=== PATIENT | female | born 1955 | race Caucasian/White ===

== ENCOUNTER → 2016-10-23 | Outpatient (REF) | payer OTHER ==
[~2016-10-23] MED LIST: ALBU83IN INH; AMLO25TA PO; COZA100T2 PO; DYAZ37.5 PO; LOSARTAN PO; PROT1TAB2 PO
== END ==
LOC: M SFHCADAM 09:57
PROVIDERS: ATTEND Family Medicine
DX: I10 Essential (primary) hypertension (principal)

== ENCOUNTER 2016-11-21 03:44 | Emergency (ER) | payer OTHER ==
[~2016-11-21] VITALS: Ht 167.6 cm; Wt 104.3 kg
[2016-11-21] MEDS ORDERED: ATOR1TAB18 PO (04:02)
[2016-11-21] MEDS ORDERED: ALDA25TA PO (04:02)
[2016-11-21] MEDS ORDERED: PRED20TA PO (04:58)
[2016-11-21] MEDS ORDERED: predniSONE 20 MG TAB PO ONE (05:00)
[2016-11-21 05:19] VITALS: BP 142/73
[2016-11-21] MEDS ORDERED: ALBUTEROL 90 MCG/ACT 8GM HFA INHALER INH ONE (05:30)
== END 2016-11-21 05:36 | disposition home or self-care (01) ==
LOC: M ED 05:12
DX: J20.9 Acute bronchitis, unspecified (principal); J45.909 Unspecified asthma, uncomplicated; Z79.899 Other long term (current) drug therapy; Z79.52 Long term (current) use of systemic steroids

== ENCOUNTER → 2017-04-15 | Outpatient (CLI) | payer OTHER ==
[~2017-04-15] MED LIST changes: +ALDA25TA PO; +ATOR80TA59 PO; +METHACHOLINE KIT (J7674) INH ONE; +PRED20TA PO
--- NOTE | 2017-04-15 11:26 | PFTRPT ---
Tech: Terrence DOTSON RRT Age: 61 Sex: Female Race: Height: 66.50 Inches Weight: 224.00 Lbs BSA: 2.11 Diagnosis: R05 METHACHOLINE CHALLENGE REPORT: ORDERING PROVIDER: DEWAYNE Aguilar DATE OF SERVICE: 04/15/17 INTERPRETATION: The study was of excellent technical quality. Under protocol, methacholine was administered. At a maximal dose of 25 mg (188.875 CDUs) of methacholine,a 21% decline in the FEV1 was noted. A PC20 of 17.21 does not meet criteria for a positive study. Flow rates did return to baseline post bronchodilator administration. IMPRESSION: Borderline methacholine challenge study in view of the above. Please correlate clinically. MTDD
== END ==
LOC: M CARPUL 10:31
PROVIDERS: ATTEND Nurse Practitioner Adult Health
DX: R05 Cough (principal)

== ENCOUNTER → 2017-09-11 | Outpatient (CLI) | payer OTHER ==
[~2017-09-11] MED LIST changes: -METHACHOLINE KIT (J7674) INH ONE
--- NOTE | 2017-09-11 10:54 | REPMRS ---
Patient History The patient states she had a clinical breast exam in February 2017.Patient is postmenopausal and is nulliparous. Family history of breast cancer in sister at age 40, unknown cancer in mother at age 64, and unknown cancer in paternal uncle at age 69. Took hormonal contraceptives for 5 years. Digital Mammo Screening Bilat: September 11, 2017 - Exam #: [id number] Bilateral CC and MLO view(s) were taken. Technologist: Tasha Spain Technologist Prior study comparison: 2013, digital bilateral screening mammo, performed at [facility]. July 17, 2012, bilateral bilat screen digital mammo, performed at [facility] ([facility]). November 02, 2003, bilateral screening mammogram, performed at [facility] ([facility]). FINDINGS: The breast tissue is heterogeneously dense. This may lower the sensitivity of mammography. There has been no change in the appearance of the mammogram from the prior studies. There is a moderate amount of residual fibroglandular tissue which is fairly symmetric. There is no interval development of dominant mass, areas of architectural distortion, or clustered microcalcification typical of malignancy. ASSESSMENT: BI-RADS/ACR category 1 mammogram. Negative. Recommendation Routine screening mammogram in 1 year (for women over age 40). This mammogram was interpreted with the aid of an FDA-approved computer-aided dectection system. Electronically Signed By: Shakeel Woodward MD 09/11/17 [id number]
--- NOTE | 2017-09-12 07:13 | REP ---
BILATERAL LOWER EXTREMITY DOPPLER ULTRASOUND: CLINICAL: Pain and edema. TECHNIQUE: Real-time jacobs scale and color Doppler evaluation using linear high frequency transducer along with reflux evaluation. FINDINGS: Ultrasound examination of the bilateral lower extremity deep venous structures from the common femoral vein to the popliteal vein demonstrates normal compressibility, flow, and wave patterns in response to respiration and augmentation. There is no evidence of deep venous thrombosis. Reflux evaluation demonstrates Dictation ends..... Incomplete
== END ==
LOC: M RAD 09:12
PROVIDERS: ATTEND Family Medicine
DX: Z12.31 Encounter for screening mammogram for malignant neoplasm of breast (principal); Z80.3 Family history of malignant neoplasm of breast; Z78.0 Asymptomatic menopausal state; R92.8 Other abnormal and inconclusive findings on diagnostic imaging of breast
CPT/HCPCS: 93970; G0202

== ENCOUNTER → 2019-09-27 | Outpatient (CLI) | payer OTHER ==
[~2019-09-27] MED LIST changes: -ALDA25TA PO; +SPIR1TAB34 PO
--- NOTE | 2019-09-27 20:54 | REP ---
Clinical: Cough . Comparison: 11/01/2014 . Technique: PA and lateral. Findings: The mediastinum and cardiac silhouette are normal. The lung justin are clear and without acute consolidation, effusion, or pneumothorax. The skeletal structures are intact and normal. Impression: 1. No acute cardiopulmonary process. Electronically Signed by Eliel Fernandez MD 09/27/2019 08:46 P
== END ==
LOC: M ADAMS 09:39
PROVIDERS: ATTEND Family Medicine
DX: R05 Cough (principal)

== ENCOUNTER → 2020-12-01 | Outpatient (CLI) | payer OTHER ==
[~2020-12-01] MED LIST changes: +ISOVUE-370 76% 100ML VIAL As Ordered ONE
--- NOTE | 2020-12-01 10:07 | REP ---
INDICATION: HEADACHE, UNSPECIFIED. New onset headache. COMPARISON: None. TECHNIQUE: CT contrast dose: 75 ml as Isovue 370 as administered intravenously. Pre and post contrast helical scanning is included. FINDINGS: Bone windows settings demonstrate intact bony calvarium. There is no evidence of skull fracture or bony destructive lesion. The right side of the sphenoid sinus is partially opacified with mucosal thickening. The visualized paranasal sinuses are otherwise clear. No intraorbital abnormality is seen. On soft tissue window settings, jacobs-white differentiation pattern is seen to be normal above and below the tentorium. Lateral, third, and fourth ventricles are normal in size and position. There is no evidence of intracranial hemorrhage. No mass, extra-axial fluid collection or infarction is seen. Contrast enhanced study shows enhancement of normal vessels. No abnormal contrast enhancement is appreciated. IMPRESSION: Mucosal thickening partially opacifying the right side of the sphenoid sinus. Otherwise normal brain CT without and with IV contrast. <Electronically signed by Joshua Galan > 12/01/20 [id number]
== END ==
LOC: M RAD 09:12
PROVIDERS: ATTEND Family Medicine
DX: R51.9 Headache, unspecified (principal); J34.89 Other specified disorders of nose and nasal sinuses
CPT/HCPCS: 70470; Q9967

== ENCOUNTER → 2020-12-18 | Outpatient (CLI) | payer OTHER ==
[~2020-12-18] MED LIST changes: -ISOVUE-370 76% 100ML VIAL As Ordered ONE
[2020-12-19 13:07] LABS: ANTINUCLEAR ANTIBODIES DIRECT Negative (Negative)
== END ==
LOC: M PLALAB 10:35
PROVIDERS: ATTEND Psychiatry & Neurology Neurology
DX: R51.9 Headache, unspecified (principal)

== ENCOUNTER → 2022-02-19 | Outpatient (CLI) | payer MEDICARE, OTHER | LOC: M WHC 09:56 | PROVIDERS: ATTEND Family Medicine | DX: Z12.31 Encounter for screening mammogram for malignant neoplasm of breast (principal); Z13.820 Encounter for screening for osteoporosis; M81.0 Age-related osteoporosis without current pathological fracture ==

== ENCOUNTER → 2022-05-10 | Outpatient (REF) | payer MEDICARE, OTHER ==
[~2022-05-10] MED LIST changes: +ALBU2.5V10 INH; -ALBU83IN INH
[2022-05-10 13:26] LABS: HEMOGLOBIN A1c 5.9 %
[2022-05-10 14:00] LABS: ALBUMIN 3.9 GM/DL (3.2-5.2); BILIRUBIN,TOTAL 0.6 MG/DL (0.2-1.0); CALCIUM LEVEL 10.5 MG/DL (8.8-10.2); CREATININE FOR GFR 1.37 MG/DL (0.55-1.30); GLOMERULAR FILTRATION RATE 41.2 (>45); POTASSIUM SERUM 3.3 MEQ/L (3.5-5.1); TOTAL PROTEIN 7.2 GM/DL (6.4-8.2)
== END ==
LOC: M SFHCADAM 11:02
PROVIDERS: ATTEND Family Medicine
DX: Z84.81 Family history of carrier of genetic disease (principal); G62.9 Polyneuropathy, unspecified

== ENCOUNTER → 2022-05-22 | Outpatient (CLI) | payer MEDICARE, OTHER ==
[~2022-05-22] MED LIST changes: +PROHANCE 279.3MG/ML 15ML VIAL As Ordered ONE
== END ==
LOC: M RAD 14:38
PROVIDERS: ATTEND Family Medicine
DX: R92.8 Other abnormal and inconclusive findings on diagnostic imaging of breast (principal); Z80.3 Family history of malignant neoplasm of breast
CPT/HCPCS: A9576; C8908

== ENCOUNTER → 2022-06-10 | Outpatient (REF) | payer MEDICARE, OTHER ==
[~2022-06-10] MED LIST changes: -PROHANCE 279.3MG/ML 15ML VIAL As Ordered ONE
[2022-06-10 13:49] LABS: BLOOD UREA NITROGEN 13 MG/DL (7-18); CALCIUM LEVEL 10.1 MG/DL (8.8-10.2); CARBON DIOXIDE LEVEL 25 MEQ/L (21-32); CHLORIDE LEVEL 109 MEQ/L (98-107); CREATININE FOR GFR 0.91 MG/DL (0.55-1.30); GLOMERULAR FILTRATION RATE > 60.0 (>45); GLUCOSE, FASTING 108 MG/DL (70-100); POTASSIUM SERUM 3.4 MEQ/L (3.5-5.1); SODIUM LEVEL 142 MEQ/L (136-145)
== END ==
LOC: M SFHCADAM 11:02
PROVIDERS: ATTEND Family Medicine
DX: R79.89 Other specified abnormal findings of blood chemistry (principal)

== ENCOUNTER → 2024-08-03 | Outpatient (REF) | payer MEDICARE, MEDICAID ==
[~2024-08-03] MED LIST changes: -COZA100T2 PO; +LOSA-530 PO
[2024-08-03 13:32] LABS: BASO # 0.1 10^3/uL (0.0-0.2); BASO % 1.9 % (0.0-1.0); EOS # 0.2 10^3/uL (0.0-0.5); EOS % 3.3 % (0.0-3.0); HEMATOCRIT 46.8 % (36.0-47.0); HEMOGLOBIN 15.1 g/dl (12.0-15.5); LYMPH # 2.2 10^3/uL (1.5-5.0); LYMPH % 30.7 % (24.0-44.0); MEAN CORPUSCULAR HEMOGLOBIN 28.9 pg (27.0-33.0); MEAN CORPUSCULAR HGB CONC 32.3 g/dl (32.0-36.5); MEAN CORPUSCULAR VOLUME 89.5 fl (80.0-96.0); MONO # 0.7 10^3/uL (0.0-0.8); MONO % 9.4 % (2.0-8.0); NEUTROPHILS # 3.9 10^3/uL (1.5-8.5); NEUTROPHILS % 53.6 % (36.0-66.0); PLATELET COUNT, AUTOMATED 312 10^3/uL (150-450); RED BLOOD COUNT 5.23 10^6/uL (4.00-5.40); WHITE BLOOD COUNT 7.2 10^3/uL (4.0-10.0)
[2024-08-03 14:09] LABS: ALBUMIN 3.6 G/DL (3.2-5.2); ALKALINE PHOSPHATASE 94 U/L (35-104); ALT/SGPT 46 U/L (7.0-40); AST/SGOT 16 U/L (<34); BILIRUBIN,TOTAL 0.6 MG/DL (0.3-1.2); BLOOD UREA NITROGEN 17 MG/DL (9-23); CALCIUM LEVEL 10.7 MG/DL (8.3-10.6); CARBON DIOXIDE LEVEL 28 MMOL/L (20-31); CHLORIDE LEVEL 107 MMOL/L (98-107); CHOLESTEROL LEVEL 317 MG/DL (<200); CREATININE FOR GFR 0.85 MG/DL (0.55-1.30); GLOMERULAR FILTRATION RATE > 60.0 (>45); GLUCOSE, FASTING 89 MG/DL (74-106); HDL CHOLESTEROL 42.8 MG/DL (>40); LDL CHOLESTEROL 237.6 MG/DL (<100); NON-HDL-C 274.2 MG/DL; POTASSIUM SERUM 4.5 MMOL/L (3.5-5.1); SODIUM LEVEL 141 MMOL/L (136-145); TRIGLYCERIDES LEVEL 183 MG/DL (<150)
[2024-08-03 14:10] LABS: THYROID STIMULATING HORMONE 1.406 uIU/ML (0.55-4.78)
== END ==
LOC: M SFHCADAM 10:33
PROVIDERS: ATTEND Family Medicine
DX: Z00.00 Encounter for general adult medical examination without abnormal findings (principal); E78.00 Pure hypercholesterolemia, unspecified

== ENCOUNTER 2024-08-31 14:38 | Emergency (ER) | payer MEDICARE, MEDICAID ==
[~2024-08-31] VITALS: Ht 167.6 cm; Wt 111.6 kg
[2024-08-31] MEDS ORDERED: FURO20TA2 (14:48)
[2024-08-31 17:14] LABS: BASO # 0.1 10^3/uL (0.0-0.2); BASO % 1.5 % (0.0-1.0); EOS # 0.2 10^3/uL (0.0-0.5); EOS % 2.4 % (0.0-3.0); HEMATOCRIT 45.9 % (36.0-47.0); HEMOGLOBIN 15.4 g/dl (12.0-15.5); LYMPH # 2.4 10^3/uL (1.5-5.0); LYMPH % 32.4 % (24.0-44.0); MEAN CORPUSCULAR HEMOGLOBIN 29.4 pg (27.0-33.0); MEAN CORPUSCULAR HGB CONC 33.6 g/dl (32.0-36.5); MEAN CORPUSCULAR VOLUME 87.8 fl (80.0-96.0); MONO # 0.6 10^3/uL (0.0-0.8); MONO % 7.7 % (2.0-8.0); NEUTROPHILS # 4.1 10^3/uL (1.5-8.5); NEUTROPHILS % 55.3 % (36.0-66.0); PLATELET COUNT, AUTOMATED 338 10^3/uL (150-450); RED BLOOD COUNT 5.23 10^6/uL (4.00-5.40); WHITE BLOOD COUNT 7.4 10^3/uL (4.0-10.0)
[2024-08-31 17:38] LABS: ALBUMIN 3.8 G/DL (3.2-5.2); ALKALINE PHOSPHATASE 109 U/L (35-104); ALT/SGPT 31 U/L (7.0-40); AST/SGOT 12 U/L (<34); BILIRUBIN,DIRECT 0.2 MG/DL (<0.4); BILIRUBIN,TOTAL 0.6 MG/DL (0.3-1.2); BLOOD UREA NITROGEN 12 MG/DL (9-23); CALCIUM LEVEL 10.4 MG/DL (8.3-10.6); CARBON DIOXIDE LEVEL 27 MMOL/L (20-31); CHLORIDE LEVEL 107 MMOL/L (98-107); GLOMERULAR FILTRATION RATE > 60.0 (>45); GLUCOSE, FASTING 93 MG/DL (74-106); SODIUM LEVEL 142 MMOL/L (136-145)
[2024-08-31 18:12] VITALS: BP 166/93
[2024-08-31 20:00] VITALS: BP 153/81
[2024-08-31 20:01] VITALS: TEMP 97.5; O2SAT 97
[2024-08-31] MEDS ORDERED: AMLO1TAB24 PO (20:01)
== END 2024-08-31 20:10 | disposition home or self-care (01) ==
LOC: M ED 14:38
DX: I10 Essential (primary) hypertension (principal); I44.4 Left anterior fascicular block; I45.81 Long QT syndrome; Z79.899 Other long term (current) drug therapy

== ENCOUNTER → 2025-01-11 | Outpatient (REF) | payer MEDICARE, MEDICAID ==
[~2025-01-11] MED LIST changes: +AMLO1TAB24 PO; +ATOR1TAB19 PO; +DOXY-441 PO; +FURO20TA2; +HYDR12.55 PO; +LOSA25TA13 PO
[2025-01-11 19:21] LABS: CREATININE FOR GFR 0.86 MG/DL (0.55-1.30); GLOMERULAR FILTRATION RATE 73.5 (>45)
== END ==
LOC: M SFHCADAM 14:27
PROVIDERS: ATTEND Family Medicine
DX: R53.83 Other fatigue (principal)

== ENCOUNTER → 2025-02-05 | Outpatient (CLI) | payer MEDICARE, MEDICAID | LOC: M RAD 13:11 | PROVIDERS: ATTEND Neuromusculoskeletal Medicine, Sports Medicine | DX: M75.101 Unspecified rotator cuff tear or rupture of right shoulder, not specified as traumatic (principal); M25.511 Pain in right shoulder ==